=== PATIENT | female | born 1935 ===

== ENCOUNTER 2020-10-02 10:18 | Outpatient (CLI) | payer MEDICARE, OTHER, SELFPAY ==
[2020-10-02 11:09] LABS: INR 4.89 (0.8-1.2)
== END 2020-10-02 10:19 | disposition home or self-care (01) ==
PROVIDERS: Visit Provider Internal Medicine
DX: Z51.81 Encounter for therapeutic drug level monitoring (principal); Z79.01 Long term (current) use of anticoagulants
CPT/HCPCS: 85610